=== PATIENT | female | born 2000 ===

== ENCOUNTER 2024-05-06 11:50 | Outpatient (CLI) | payer OTHER | END 2024-05-06 11:52 | disposition home or self-care (01) | LOC: SONOGRAMA 11:50 | DX: S93.401A Sprain of unspecified ligament of right ankle, initial encounter (principal); X58.XXXA Exposure to other specified factors, initial encounter; Y93.9 Activity, unspecified; Y92.9 Unspecified place or not applicable; Y99.9 Unspecified external cause status ==